=== PATIENT | male | born 1950 | race Two or more races ===

== ENCOUNTER 2016-06-08 07:15 | Inpatient (IN) | payer MEDICARE ==
--- NOTE | 2016-06-02 16:50 | Diagnostic Imaging Report ---
Indication: Cough Technique: Two views of the chest Comparison: none Findings: Lung and pleural spaces are clear. Heart size is normal. Aorta is tortuous calcified and ectatic. Impression: Negative
[2016-06-08] VITALS (13 sets, daily range): BP systolic 132–179; BP diastolic 61–94
[~2016-06-08] VITALS: Ht 177.8 cm; Wt 85.7 kg
[~2016-06-08 07:15] MED LIST: ceFAZolin 1gm/50ml Premix 50 ML IV ONE
--- NOTE | 2016-06-08 07:54 | Pre-Procedure Note/Attestation ---
Pre-Procedure Note/Attestation Complete Prior to Procedure Planned Procedure: not applicable Procedure Narrative: TURP SP tube placement Attestation I attest that I discussed the nature of the procedure; its benefits; risks and complications; and alternatives (and the risks and benefits of such alternatives ), prior to the procedure, with the patient (or the patient's legal sales representative printing supplies). I attest that, if there was a reasonable possibility of needing a blood transfusion, the patient (or the patient's legal sales representative printing supplies) was given the [facility] standardized written summary, pursuant to the Shar Karyna Blood Safety Act ([place] Health and Safety Code # 1645, as amended). I attest that I re-evaluated the patient just prior to the surgery and that there has been no change in the patient's H&P, except as documented below: Jeovanny Caruso MD Jun 08, 2016 07:54
[2016-06-08] MEDS ORDERED: FLOMAX0.4 MG ORAL (08:16)
[2016-06-08] MEDS ORDERED: NS Irrig 4000ml IRRIG ONE (09:51)
[2016-06-08] MEDS ORDERED: LR 1000ml 1,000 ML IVLG SCH (10:29)
--- NOTE | 2016-06-08 10:29 | Anethesia Preoperative Eval ---
Anesthesia Pre-op PMH/ROS General Date of Evaluation: Jun 08, 2016 Time of Evaluation: 09:05 Anesthesiologist: Siobhan ASA Score: ASA 2 Mallampati Score Class I : Soft palate, uvula, fauces, pillars visible Class II: Soft palate, uvula, fauces visible Class III: Soft palate, base of uvula visible Class IV: Only hard plate visible Mallampati Classification: Class II Surgeon: Zuly Diagnosis: BPH Surgical Procedure: TURP, Suprapubic catheter placement Anesthesia History: none Family History: no anesthesia problems Allergies: Coded Allergies: No Known Allergies (Unverified , 06/07/16) Medications: see eMAR Past Medical History Cardiovascular: Denies: CAD, HTN, OR, arrhythmia, other, valve dz Pulmonary: Denies: COPD, MARY, asthma, other Gastrointestinal/Genitourinary: Denies: CRI, ESRD, GERD, other Neurologic/Psychiatric: Denies: CVA, TIA, dementia, depression/anxiety, other Endocrine: Denies: DM, hypothyroidism, other, steroids HEENT: Denies: TELLER (L), TELLER (R), cataract (L), cataract (R), glaucoma, other Hematology/Immune: Denies: DVT, anemia, bleeding disorder, other Musculoskeletal/Integumentary: Denies: DDD, DJD, OA, RA, edema, other PMH Narrative: BPH Anesthesia Pre-op Phys. Exam Physician Exam Last Vital Signs Date Time Temp Pulse Resp B/P Pulse Ox O2 Delivery O2 Flow Rate FiO2 06/08/16 08:17 97.7 52 20 157/77 97 Room Air Constitutional: NAD Neurologic: CN 2-12 intact Cardiovascular: RRR Respiratory: CTA Gastrointestinal: S/NT/ND Airway Exam Mallampati Score: Class II MO: full ROM: full Teeth: intact Dentures: no lower, no upper PIPE OLIVER D.O. Jun 08, 2016 10:29
[2016-06-08] MEDS ORDERED: fentaNYL 100 mcg/2 mL IV PRN (10:30)
--- NOTE | 2016-06-08 10:55 | Brief Operative Note ---
Immediate Post Operative Note Operative Note Procedure: TURP SP tube placement Post-op Diagnosis: same Surgeon: Sin Caruso Anesthesia: general Specimen: yes Complications: none Condition: stable Estimated Blood Loss: minimal Drains: other Implant(s) used?: No Jeovanny Caruso MD Jun 08, 2016 10:55
--- NOTE | 2016-06-08 11:09 | Immediate Post-Op Evaluation ---
Immediate Post-Op Evalulation Immediate Post-Op Evalulation Procedure: TURP, suprapubic tube insertion Date of Evaluation: Jun 08, 2016 Time of Evaluation: 11:08 IV Fluids: 1100ml Blood Products: none Estimated Blood Loss: 50ml Urinary Output: due to void Blood Pressure Systolic: 170 Blood Pressure Diastolic: 94 Pulse Rate: 62 Respiratory Rate: 16 O2 Sat by Pulse Oximetry: 100 Temperature (Fahrenheit): 97.6 Pain Score (1-10): 0 Nausea: No Vomiting: No Complications none Patient Status: awake, reacts Hydration Status: adequate Drug: ancef 2 gm Given Within 1 Hr of Incision: Yes PIPE OLIVER D.O. Jun 08, 2016 11:09
[2016-06-08] MEDS ORDERED: Meperidine 25mg/ml Inj IV PRN (11:15)
[2016-06-08] MEDS: Hydromorphone 0.5mg/0.5ml inj IVP PRN ×2 (11:27→11:47)
[2016-06-08 13:50] LABS: MEAN CORPUSCULAR HEMOGLOBIN 29.5 PG (27.0-31.0); MEAN CORPUSCULAR HGB CONC 33.6 G/DL (32.0-36.0); MEAN CORPUSCULAR VOLUME 88 FL (80-99); PLATELET COUNT 167 K/UL (150-450); RED CELL DISTRIBUTION WIDTH 12.1 % (11.6-14.8); WHITE BLOOD COUNT 9.1 K/UL (4.8-10.8)
[2016-06-08 14:13] LABS: BAND NEUTROPHILS % (MANUAL) 0 % (0-8); BASOPHILS % (MANUAL) 0 % (0-2); EOSINOPHILS % (MANUAL) 0 % (0-3); LYMPHOCYTES % (MANUAL) 15 % (20-45); NEUTROPHILS % (MANUAL) 83 % (45-75); PLATELET ESTIMATE ADEQUATE; PLATELET MORPHOLOGY NORMAL; TOTAL CELLS COUNTED 100
[2016-06-08 14:19] LABS: ANION GAP 14 (5-15); CALCIUM 8.8 mg/dL (8.6-10.2); CARBON DIOXIDE 26 mEQ/L (20-30); CHLORIDE 98 mEQ/L (98-107); CREATININE 0.8 mg/dL (0.7-1.2); GLOMERULAR FILTRATION RATE > 60 mL/min (>60); HEMOLYSIS 8; POTASSIUM 4.3 mEQ/L (3.4-4.9); SODIUM 138 mEQ/L (135-145)
[2016-06-08] MEDS: HYDROmorphone 1mg/ml Carpuject IVP PRN (16:05)
[2016-06-08] MEDS: D5 1/2NS w/KCl 20mEq 1,000 ML IV SCH (17:17)
[2016-06-08] MEDS: cefOXitin Sod 1 GM in D5W 55 ML IV SCH (20:53)
[2016-06-08] MEDS: Docusate 100mg tablet ORAL SCH (20:53)
[2016-06-08] MEDS: Norco 5mg/325mg tab ORAL PRN (23:03)
[2016-06-09] VITALS: BP 135/77
[2016-06-09] MEDS: D5 1/2NS w/KCl 20mEq 1,000 ML IV SCH (02:15)
[2016-06-09] MEDS: HYDROmorphone 1mg/ml Carpuject IVP PRN (02:15)
[2016-06-09] MEDS: Norco 5mg/325mg tab ORAL PRN ×3 (03:07→13:49)
[2016-06-09 04:00] VITALS: BP 123/62
[2016-06-09] MEDS: cefOXitin Sod 1 GM in D5W 55 ML IV SCH ×3 (07:02)
[2016-06-09 07:28] LABS: BASOPHILS % (AUTO) 0.5 % (0.0-2.0); EOSINOPHILS % (AUTO) 0.2 % (0.0-3.0); LYMPHOCYTES % (AUTO) 14.3 % (20.0-45.0); MEAN CORPUSCULAR HEMOGLOBIN 29.9 PG (27.0-31.0); MEAN CORPUSCULAR HGB CONC 34.2 G/DL (32.0-36.0); MEAN CORPUSCULAR VOLUME 87 FL (80-99); MEAN PLATELET VOLUME 8.2 FL (6.5-10.1); MONOCYTES % (AUTO) 9.7 % (1.0-10.0); NEUTROPHILS % (AUTO) 75.4 % (45.0-75.0); PLATELET COUNT 167 K/UL (150-450); RED BLOOD COUNT 4.25 M/UL (4.70-6.10); RED CELL DISTRIBUTION WIDTH 12.1 % (11.6-14.8); WHITE BLOOD COUNT 14.1 K/UL (4.8-10.8)
[2016-06-09 07:49] LABS: ANION GAP 12 (5-15); CALCIUM 8.8 mg/dL (8.6-10.2); CARBON DIOXIDE 29 mEQ/L (20-30); CHLORIDE 100 mEQ/L (98-107); CREATININE 0.9 mg/dL (0.7-1.2); GLOMERULAR FILTRATION RATE > 60 mL/min (>60); HEMOLYSIS 7; POTASSIUM 4.1 mEQ/L (3.4-4.9); SODIUM 141 mEQ/L (135-145)
[2016-06-09] MEDS: Docusate 100mg tablet ORAL SCH (08:12)
[2016-06-09 08:25] VITALS: BP 140/68
--- NOTE | 2016-06-09 12:04 | 48 Hour Post Anesthesia Eval ---
Post Anesthesia Evaluation Procedure: TURP, suprapubic tube insertion Date of Evaluation: Jun 09, 2016 Time of Evaluation: 12:03 Blood Pressure Systolic: 142 0: 76 Pulse Rate: 76 Respiratory Rate: 20 Temperature (Fahrenheit): 97.6 O2 Sat by Pulse Oximetry: 98 Airway: patent Nausea: No Vomiting: No Pain Intensity: 3 Hydration Status: adequate Cardiopulmonary Status: stable Mental Status/LOC: patient returned to baseline Follow-up Care/Observations: n/a Post-Anesthesia Complications: none Follow-up care needed: N/A SHAKIRA ANGEL M.D. Jun 09, 2016 12:04
[2016-06-09 12:43] VITALS: BP 135/74
--- NOTE | 2016-06-09 13:58 | Discharge Summary ---
Discharge Summary Hospital Course Date of Admission Jun 08, 2016 at 07:15 Date of Discharge Admitting Diagnosis LUBNA Pope is a 65 year old male who was admitted on Jun 08, 2016 at 07:15 for Enlarged Prostate Hospital Course The patient was seen and examined at bedside and all new and available data was reviewed in the patients chart. Last 24 Hour Vital Signs Date Time Temp Pulse Resp B/P Pulse Ox O2 Delivery O2 Flow Rate FiO2 06/09/16 12:43 97.9 48 18 135/74 97 Room Air 06/09/16 12:04 76 20 98 06/09/16 09:14 97.6 06/09/16 08:25 98.1 54 18 140/68 96 Room Air 06/09/16 04:00 98.1 50 18 123/62 97 Room Air 06/09/16 00:00 98.1 57 18 135/77 95 Room Air 06/08/16 20:00 97.9 62 18 139/61 96 Room Air 06/08/16 14:52 98.0 69 18 145/67 97 Room Air Discharge [facility] dictated: [id number]. (Patient was seen earlier today. Signature timestamp does not reflect patient encounter time) Edd Pepe MD Discharge Discharge Disposition Patient was discharged to Home (01) Discharge Diagnoses: Edd Pepe MD Jun 09, 2016 13:58
[2016-06-09] MEDS ORDERED: Levofloxacin 500mg tab ORAL SCH (14:00)
--- NOTE | 2016-06-09 22:58 | Discharge Summary ---
DATE OF ADMISSION: 06/08/2016 DATE OF DISCHARGE: 06/09/2016 HISTORY OF PRESENT ILLNESS: This is a 65-year-old gentleman with past medical history significant for hypertension, dyslipidemia, and history of BPH subsequently was scheduled for the TURP on 06/08/2016 at [facility] with Dr. Caruso. The patient upon arrival underwent TURP with suprapubic catheter placement. The patient tolerated procedure well and subsequently was discharged home today to be followed as outpatient with Dr. Caruso within one week. FINAL DIAGNOSES: 1. Benign prostatic hypertrophy, status post transurethral resection of prostate with a suprapubic catheter placement. 2. Hypertension. 3. Dyslipidemia. MEDICATION ON DISCHARGE: Continue discharge medication list. ACTIVITY: As tolerated. DIET: Cardiac diet. FOLLOWUP: I advised the patient follow up with Dr. Caruso within one to two weeks. Edd Pepe M.D. DR: NINFA JOB#: [id number] CC:
[2016-06-10] MEDS ORDERED: Dexamethasone 4mg/ml vial ONE (09:00)
[2016-06-10] MEDS ORDERED: fentaNYL 100 mcg/2 mL IV ONE (09:00)
[2016-06-10] MEDS ORDERED: Glycopyrrolate 0.2mg/ml 1ml Vial ONE (09:00)
[2016-06-10] MEDS ORDERED: NS Irrig 1000ml ONE (09:00)
[2016-06-10] MEDS ORDERED: Zemuron 50mg/5ml Inj IV ONE (09:00)
[2016-06-10] MEDS ORDERED: LR 1000ml ONE (09:00)
[2016-06-10] MEDS ORDERED: Propofol 10mg/ml 20ml IV ONE (09:00)
[2016-06-10] MEDS ORDERED: Neostigmine 1mg/ml 10ml Inj ONE (09:00)
[2016-06-10] MEDS ORDERED: NS Irrig 4000ml IRRIG ONE (09:00)
[2016-06-10] MEDS ORDERED: Midazolam 2mg/2ml Inj ONE ×2 (09:00)
--- NOTE | 2016-06-15 11:08 | Operative Note - Dictated ---
DATE OF OPERATION: 06/08/2016 PREOPERATIVE DIAGNOSES: 1. Benign prostatic hypertrophy. 2. Urinary retention. POSTOPERATIVE DIAGNOSES: 1. Benign prostatic hypertrophy. 2. Urinary retention. OPERATION: 1. Placement of the suprapubic tube. 2. Transurethral resection of the prostate. SURGEON: Jeovanny Caruso M.D. ANESTHESIA: General. FINDINGS: Neurogenic bladder and benign prostatic hypertrophy. INDICATIONS FOR SURGERY: The patient has been on self catheterization for a long period of time and had BPH and urinary retention. confirmed the diagnoses. Treatment options were explained to him in great length including all potential complications. He signed a consent. DESCRIPTION OF SURGERY: He was brought to the operating room, placed in lithotomy position, prepped and draped in standard fashion under general anesthesia. The resectoscope was introduced into the bladder. Using gloves and retractor, an incision was made in the suprapubic area and suprapubic tube was placed and left indwelling in the bladder. After that, transurethral resection of the prostate was done preserving the bladder neck and resecting all the tissue all the way to the prostate capsule. Tissue was then evacuated and using a button electrode the bleeding was stopped. The patient tolerated the procedure well. Bell catheter was placed. Continuous irrigation was started. The patient tolerated the surgery without any complications. Sponge count and instrument count was correct. Jeovanny Caruso M.D. DR: ELE JOB#: [id number] CC:
== END 2016-06-09 14:50 | disposition home or self-care (01) | DRG 714 ==
LOC: SDSOVERFLO 07:15 → 3E 13:26
DX: N40.1 Benign prostatic hyperplasia with lower urinary tract symptoms (principal); N31.9 Neuromuscular dysfunction of bladder, unspecified; I10 Essential (primary) hypertension; E78.5 Hyperlipidemia, unspecified; R33.8 Other retention of urine
CPT/HCPCS: 36415; 71020; 80048; 85007; 85025; 87081; 94003; 94150; J2250; J2405; J2710